=== PATIENT | female | born 1995 | race African-American/Black ===

== ENCOUNTER 2017-02-22 23:47 | Day surgery (SDC) | payer SELFPAY ==
--- NOTE | 2017-02-23 00:36 | PDOC ---
History of Present Illness - General Chief Complaint: ,Possible Stated Complaint: MISCARRIAGE Time Seen by Provider: 02/23/17 00:10 History Source: Patient - History of Present Illness Initial Comments: 02/23/17 0019 21 year old female with spontaneous prior to arrival from home. Patient found out she was 3 days ago and reports that she missed 2 periods. She does not know how far long she is. EMS found patient at home with full body outside the vaginal canal, fetus is attached to the umbilical cord and placenta. Small amount of tissue is noted outside the vaginal vault. Patient reports some cramping and rectal and pelvic pressure. Patient denies fever, headache, chest pain,urinary complaints at this time Past History - Past Medical History Allergies/Adverse Reactions: Allergies Allergy/AdvReac Type Severity Reaction Status Date / Time No Known Allergies Allergy Verified 02/23/17 00:13 Home Medications: Ambulatory Orders Vit/Iron Fumarate/FA [ Tablet] 1 tablet PO DAILY 08/09/15 Ibuprofen [Motrin -] 600 mg PO QID #28 tablet 09/29/15 Asthma: No Cancer: No Cardiac Disorders: No Diabetes: No HTN: No Seizures: No Thyroid Disease: No - Psycho/Social/Smoking Cessation Hx Suicidal Ideation: No Smoking History: Unknown if ever smoked Have you smoked in the past 12 months: No Information on smoking cessation initiated: No Hx Alcohol Use: No Drug/Substance Use Hx: No Hx Substance Use Treatment: No Review of Systems - Review of Systems Able to Perform ROS?: Yes Is the patient limited Hebrew proficient: No : Yes: Other (vaginal bleeding) *Physical Exam - Vital Signs Last Vital Signs Temp Pulse Resp BP Pulse Ox 97.9 F 89 14 125/68 98 02/23/17 00:13 02/23/17 00:13 02/23/17 00:13 02/23/17 00:13 02/23/17 00:13 - Physical Exam General Appearance: Yes: Appropriately Dressed Cardiovascular: positive: Regular Rhythm, Regular Rate Female Pelvic Exam: positive: other (fetus attached to umbilical cord, large tissue expelling from vaginal vault. ) Gastrointestinal/Abdominal: positive: Normal Bowel Sounds, Soft Extremity: positive: Normal Capillary Refill, Normal Inspection, Normal Range of Motion Integumentary: positive: Normal Color, Dry, Warm Neurologic: positive: Fully Oriented, Alert ED Treatment Course - LABORATORY CBC & Chemistry Diagram: 02/22/17 00:56 02/22/17 00:56 Progress Note - Progress Note Progress Note: A: Spontaneous P: cbc cmp IVF NPO x 8 hours. recruiting operations consultant consult Medical Decision Making - Medical Decision Making 02/23/17 00:35 patient with abdominal cramping, umbilical cord and placenta in vaginal vault. small tissue retrieved. fetus attached to the umbilical cord. 02/23/17 0230 Patient reports eating popcorn 2 hours prior. case discussed with Dr. Yee. Patient need to be NPO for 8 hours prior to OR. *DC/Admit/Observation/Transfer Diagnosis at time of Disposition: Incomplete spontaneous
[2017-02-23 01:09] LABS: URINE APPEARANCE CLEAR; URINE BILIRUBIN NEGATIVE (NEGATIVE); URINE COLOR YELLOW; URINE GLUCOSE (UA) NEGATIVE (NEGATIVE); URINE KETONE NEGATIVE (NEGATIVE); URINE NITRITE NEGATIVE (NEGATIVE); URINE UROBILINOGEN NEGATIVE E.U./dl (0.2-1.0)
[2017-02-23 01:10] LABS: BASOPHIL 0.2 % (0-2.0); EOSINOPHIL 2.1 % (0-4.5); MCHC 33.3 g/dl (32.0-36.0); MEAN PLT VOLUME 8.9 fl (7.5-11.1); NEUTROPHILS 76.3 % (42.8-82.8); PLATELET COUNT 177 K/MM3 (134-434); RDW 14.4 % (11.6-15.6); WHITE BLOOD COUNT 10.1 K/mm3 (4.0-10.0)
[2017-02-23 01:12] LABS: URINE BLOOD 3+ (NEGATIVE); URINE LEUK ESTERASE TRACE (NEGATIVE); URINE PROTEIN 1+ (NEGATIVE)
[2017-02-23 01:18] LABS: URINE BACTERIA RARE /hpf (NONE SEEN); URINE HYALINE CAST 3 /lpf; URINE MUCUS FEW; URINE RBC 294 /hpf (0-3); URINE WBC 36 /hpf (3-5)
[2017-02-23 01:42] LABS: CREATININE 0.6 mg/dL (0.55-1.02); GLUCOSE,RANDOM 77 mg/dL (74-106)
[2017-02-23 01:43] LABS: ALBUMIN 3.1 g/dl (3.4-5.0); ANION GAP 10 (8-16); BILIRUBIN,TOTAL 0.3 mg/dL (0.2-1.0); CALCIUM 8.8 mg/dL (8.5-10.1); CO2 25 mmol/L (21-32); SGOT/AST 10 U/L (15-37); SGPT/ALT 11 U/L (12-78); TOT PROT 6.6 g/dl (6.4-8.2)
[2017-02-23 01:58] LABS: ALK PHOS 63 U/L (45-117)
[2017-02-23] MEDS ORDERED: SODIUM CHLORIDE 1,000 ML IV STA (02:49)
[2017-02-23] MEDS ORDERED: SODIUM CHLORIDE 1,000 ML IV SCH (06:00)
--- NOTE | 2017-02-23 08:22 | PDOC ---
*Physical Exam - Vital Signs Last Vital Signs Temp Pulse Resp BP Pulse Ox 97.9 F 89 14 125/68 98 02/23/17 00:13 02/23/17 00:13 02/23/17 00:13 02/23/17 00:13 02/23/17 00:13 - Physical Exam General Appearance: Yes: Appropriately Dressed. No: Apparent Distress HEENT: positive: Normal Voice Neck: positive: Supple Respiratory/Chest: negative: Respiratory Distress Integumentary: positive: Dry, Warm Neurologic: positive: Fully Oriented, Alert, Normal Mood/Affect ED Treatment Course - LABORATORY CBC & Chemistry Diagram: 02/22/17 00:56 02/22/17 00:56 - ADDITIONAL ORDERS Additional order review: Laboratory Results 02/23/17 02/22/17 02/22/17 00:56 00:56 00:56 Sodium 140 Potassium 3.6 Chloride 105 Carbon Dioxide 25 Anion Gap 10 BUN 9 D Creatinine 0.6 Creat Clearance w eGFR > 60 Random Glucose 77 Calcium 8.8 Total Bilirubin 0.3 AST 10 L ALT 11 L Alkaline Phosphatase 63 Total Protein 6.6 Albumin 3.1 L Beta HCG, Quant 84174.5 Urine Color Yellow Urine Appearance Clear Urine pH 5.0 Urine Protein 1+ H Urine Glucose (UA) Negative Urine Ketones Negative Urine Blood 3+ H Urine Nitrite Negative Urine Bilirubin Negative Urine Urobilinogen Negative Ur Leukocyte Esterase Trace H Urine RBC 294 Urine WBC 36 Ur Epithelial Cells Rare Urine Bacteria Rare Hyaline Casts 3 Urine Mucus Few Blood Type O POSITIVE Antibody Screen Negative 02/22/17 00:56 RBC 3.42 L MCV 87.0 MCHC 33.3 RDW 14.4 MPV 8.9 Neutrophils % 76.3 Lymphocytes % 14.5 D Monocytes % 6.9 Eosinophils % 2.1 D Basophils % 0.2 - Medications Given in the ED: ED Medications Discontinued Medications Generic Name Dose Route Start Last Admin Trade Name Freq PRN Reason Stop Dose Admin Sodium Chloride 1,000 mls @ 1,000 mls/hr 02/23/17 02:49 02/23/17 02:57 Normal Saline - IV 02/23/17 03:48 1,000 mls/hr ASDIR STA Administration Medical Decision Making - Medical Decision Making 02/23/17 07:40 Pt signed out to wi at 7am 21 yo F w/ incomplete spon AB. As per prior team, Pt stable w/ an ~20 week fetus attached to placenta. MILK DELIVERY DRIVER to be c/s for OR today 02/23/17 08:37 02/23/17 08:37 Case d/w Dr Guerrero, requests pitocin and ancef now 02/23/17 10:06 MILK DELIVERY DRIVER at bedside, pt enroute to the OR. Admitted *DC/Admit/Observation/Transfer Diagnosis at time of Disposition: Incomplete miscarriage - Discharge Dispostion Condition at time of disposition: Fair Admit: Yes
[2017-02-23] MEDS ORDERED: CEFAZOLIN 2 GM in DEXTROSE 5%-WATER - 50 ML IVPB ONE (08:37)
[2017-02-23] MEDS ORDERED: OXYTOCIN 10 UNITS/ML VIAL ONE ×2 (08:41→13:47)
[2017-02-23] MEDS ORDERED: OXYTOCIN 20 UNITS in 0.9% NS 1,000 ML IV SCH ×2 (08:45→12:30)
--- NOTE | 2017-02-23 10:05 | PDOC ---
*Physical Exam - Vital Signs Last Vital Signs Temp Pulse Resp BP Pulse Ox 97.7 F 80 14 103/64 100 02/23/17 07:28 02/23/17 09:25 02/23/17 09:25 02/23/17 09:25 02/23/17 09:25 ED Treatment Course - LABORATORY CBC & Chemistry Diagram: 02/22/17 00:56 02/22/17 00:56 - ADDITIONAL ORDERS Additional order review: Laboratory Results 02/23/17 02/22/17 02/22/17 00:56 00:56 00:56 Sodium 140 Potassium 3.6 Chloride 105 Carbon Dioxide 25 Anion Gap 10 BUN 9 D Creatinine 0.6 Creat Clearance w eGFR > 60 Random Glucose 77 Calcium 8.8 Total Bilirubin 0.3 AST 10 L ALT 11 L Alkaline Phosphatase 63 Total Protein 6.6 Albumin 3.1 L Beta HCG, Quant 56676.5 Urine Color Yellow Urine Appearance Clear Urine pH 5.0 Urine Protein 1+ H Urine Glucose (UA) Negative Urine Ketones Negative Urine Blood 3+ H Urine Nitrite Negative Urine Bilirubin Negative Urine Urobilinogen Negative Ur Leukocyte Esterase Trace H Urine RBC 294 Urine WBC 36 Ur Epithelial Cells Rare Urine Bacteria Rare Hyaline Casts 3 Urine Mucus Few Blood Type O POSITIVE Antibody Screen Negative 02/22/17 00:56 RBC 3.42 L MCV 87.0 MCHC 33.3 RDW 14.4 MPV 8.9 Neutrophils % 76.3 Lymphocytes % 14.5 D Monocytes % 6.9 Eosinophils % 2.1 D Basophils % 0.2 - Medications Given in the ED: ED Medications Discontinued Medications Generic Name Dose Route Start Last Admin Trade Name Freq PRN Reason Stop Dose Admin Sodium Chloride 1,000 mls @ 1,000 mls/hr 02/23/17 02:49 02/23/17 02:57 Normal Saline - IV 02/23/17 03:48 1,000 mls/hr ASDIR STA Administration Cefazolin Sodium 2 gm/ 50 mls @ 100 mls/hr 02/23/17 08:37 02/23/17 08:59 Dextrose IVPB 02/23/17 09:06 100 mls/hr ONCE ONE Administration *DC/Admit/Observation/Transfer Diagnosis at time of Disposition: Incomplete miscarriage - Discharge Dispostion Condition at time of disposition: Fair Admit: Yes
--- NOTE | 2017-02-23 10:13 | HP ---
Past Medical History - Primary Care Physician PCP:: Maren Guerrero - Admission Chief Complaint: 21 yrs old came to ER at 10.30 pm on 02/22/17, c/o passing fetus at home at 10.00 pm History of Present Illness: pt states she does not know when was her LMP. she denies h/o knowledge of . but she admits , she felt something move inside for past few days . she has been having severe cramps for past 2 days she passed fetus at 10.00 pm along with fluid & clots at 10.00pm 02/22/17 . 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 No: Addictions, Anxiety, Bipolar - Past Surgical History Past Surgical History: Yes: None Hx Myomectomy: No Hx Transabdominal Cerclage: No - Smoking History Smoking history: Current every day smoker Have you smoked in the past 12 months: Yes Aproximately how many cigarettes per day: 2 - Alcohol/Substance Use Hx Alcohol Use: No History of Substance Use: reports: Marijuana Date of Last Use: 02/16/17 (approx one wk ago. 2 joints ) - Social History History of Recent Travel: No Other Social History: pt states her father 1 month ago. Home Medications - Allergies Allergies/Adverse Reactions: Allergies Allergy/AdvReac Type Severity Reaction Status Date / Time No Known Allergies Allergy Verified 02/23/17 00:13 - Home Medications Home Medications: Ambulatory Orders NK [No Known Home Medication] 02/23/17 Physical Exam-RECRUITMENT MANAGER Vital Signs: Vital Signs Temperature 97.7 F 02/23/17 07:28 Pulse Rate 80 06/29/17 09:25 Respiratory Rate 14 02/23/17 09:25 Blood Pressure 103/64 02/23/17 09:25 O2 Sat by Pulse Oximetry (%) 100 02/23/17 09:25 Constitutional: Yes: Mild Distress, Thin Eyes: Yes: WNL HENT: Yes: WNL, Normocephalic Neck: Yes: WNL Cardiovascular: Yes: WNL, Regular Rate and Rhythm Respiratory: Yes: WNL Gastrointestinal: Yes: WNL, Normal Bowel Sounds ...Rectal Exam: Yes: Deferred Renal/: No: CVA Tenderness - Left, CVA Tenderness - Right Pelvis: Yes: Mass (suprapubic mass 16 weeks size) External Genitalia: Yes: Normal Vaginal Exam: Yes: Bleeding, Other (Male fetus hanging out of vagina,approx 18- 20 weeks gestation complete anatomy noted) Cervix: Yes: Bleeding, Other (os open placenta not felt at os) Uterus: Yes: Enlarged (16 weeks size with placenta in utero), Tender Adnexa: Normal: Bilateral, Not Palpable: Bilateral Breast(s): Yes: WNL Musculoskeletal: Yes: WNL Extremities: Yes: WNL Edema: No Integumentary: Yes: Tattoos Neurological: Yes: WNL ...Motor Strength: WNL Psychiatric: Yes: WNL, Alert, Oriented Labs: CBC, BMP 02/22/17 00:56 02/22/17 00:56 Laboratory Tests 02/22/17 00:56 Blood Type O POSITIVE Antibody Screen Negative Problem List - Problem (1) Incomplete Code(s): O03.4 - INCOMPLETE SPONTANEOUS WITHOUT COMPLICATION (2) 14-20 weeks gestation of Code(s): HVU8035 - (3) Anemia affecting in second trimester Code(s): O99.012 - ANEMIA COMPLICATING , SECOND TRIMESTER (4) Substance abuse affecting in second trimester, antepartum Code(s): O99.322 - DRUG USE COMPLICATING , SECOND TRIMESTER F19.10 - OTHER PSYCHOACTIVE SUBSTANCE ABUSE, UNCOMPLICATED Assessment/Plan 21 yrs sp incomplete , with fetus expelled out >12 hrs , placenta retained in utero , anemia, h/o substance abuse, no care pt is given IV pitocin 20 uints in 1000 ml 150 ml/hr IV Ancef 2 gm in ER. needs MRP , Suction D&C for placenta removal
[2017-02-23 10:25] LABS: INR 1.04 (0.82-1.09); PROTHROMBIN TIME (PATIENT) 11.5 SEC (9.98-11.88)
[2017-02-23] MEDS ORDERED: MIDAZOLAM HCL 2 MG/2 ML SINGLE DOSE VIAL ONE (11:37)
[2017-02-23] MEDS ORDERED: PROPOFOL 20 ML ONE (11:38)
[2017-02-23] MEDS ORDERED: SUCCINYLCHOLINE CHLORIDE 200 MG/10 ML VIAL ONE (11:38)
[2017-02-23] MEDS ORDERED: SODIUM CHLORIDE 0.9% P/F 10 ML VIAL IJ ONE (11:54)
[2017-02-23] MEDS ORDERED: DEXAMETHASONE SOD PHOSPHATE 4 MG/1 ML VIAL ONE (11:59)
[2017-02-23] MEDS ORDERED: METHYLERGONOVINE MALEATE 0.2 MG/1 ML AMP IM PRN (12:22)
[2017-02-23] MEDS ORDERED: IBUPROFEN 600 MG TABLET (FP) PO PRN (12:22)
[2017-02-23] MEDS ORDERED: ACETAMINOPHEN 325 MG TABLET (FP) PO PRN (12:22)
--- NOTE | 2017-02-23 12:22 | OP ---
Operative Note - Note: Operative Date: 02/23/17 Pre-Operative Diagnosis: 18-20 weeks gestation ,Spontaneous incomplete . retained placenta Operation: MRP, curettage of uterine cavity Findings: Male fetus 250 gm wt large blood clots passed MRP done curettage done to insure completion of abortive process Preop 2 gm iv Ancef was given in ER . . Surgeon: Maren Guerrero Anesthesiologist/COTTON TIER: Rossy Blanco Anesthesia: General Specimens Removed: fetus. placenta & curettings Estimated Blood Loss (mls): 200 Drains, Volume Out (mls): 50 (urine catheter sp sent for drug tox ) Fluid Volume Replaced (mls): 500 (Im Methergine 0.2mg in Or & 20 IU Pitocin ) Operative Report Dictated: Yes
[2017-02-23] MEDS ORDERED: ONDANSETRON 4 MG/2 ML VIAL IVPUSH PRN (12:31)
[2017-02-23] MEDS ORDERED: LACTATED RINGERS SOLUTION 1,000 ML IV SCH (12:45)
[2017-02-23 13:03] LABS: URINE MARIJUANA THC POSITIVE ng/ml (CUTOFF=50)
--- NOTE | 2017-02-23 13:58 | OP ---
DATE OF OPERATION: 02/23/2017 PREOPERATIVE DIAGNOSIS: An 18-20 weeks' , spontaneous incomplete , retained placenta. POSTOPERATIVE DIAGNOSIS: An 18-20 weeks' , spontaneous incomplete , retained placenta. OPERATION: Manual removal of placenta and curettage of uterine cavity. ANESTHESIA: General. SURGEON: Bridgett Guerrero MD ANESTHESIOLOGIST: Rossy Blanco DO FINDINGS: This is a 21-year-old 2, para 1-0-0-1 with LMP unknown, estimated gestational age 18-20 weeks by examination of the fetus. It appeared that the patient expelled the fetus at home at 10 p.m. on February 22 and the placenta has not passed. She was passing blood clots in the ER. The fetus' weight was 250 g. DESCRIPTION OF PROCEDURE: The patient was taken to the operating room table and general anesthesia was given. She was placed in the lithotomy position. The pubis, perineum and vagina were painted with Betadine and draped in the usual manner. Pelvic examination was done. The os was open and blood clots were removed. The placenta was felt at the os. The uterus was about 16 weeks' size. The placenta was manually and removed from the uterus. Some adherent tissue was still noted in the lower segment. Then, a weighted speculum was put in. The anterior lip of the cervix was held with a ring forceps. Curettage was done and the blood clots were removed from the vagina. Abortive procedure was confirmed. The uterine cavity was cleaned with a sponge and all instruments were removed. The anesthesiologist was requested to continue IV Pitocin and give IM Methergine 0.2 mg intraoperatively. Bladder was catheterized n emptied ,100 ml urine was removed, sample was sent for drug tox. The patient tolerated the procedure well and was transferred to the recovery room in stable condition. ESTIMATED BLOOD LOSS: 200 mL in the operating room. She had received 2 g of IV Ancef in the emergency room preoperatively. Her blood type is O positive. BRIDGETT GUERRERO M.D. SUSAN/[id number] MTDD
[2017-02-23 15:51] VITALS: BP 111/66; PULSE 70; TEMP 97.8; BMI 17.9
[2017-02-23 16:42] LABS: BASOPHIL 0.2 % (0-2.0); EOSINOPHIL 0.3 % (0-4.5); MCH 28.5 pg (25.7-33.7); MCHC 32.8 g/dl (32.0-36.0); MEAN PLT VOLUME 9.3 fl (7.5-11.1); NEUTROPHILS 91.2 % (42.8-82.8); PLATELET COUNT 157 K/MM3 (134-434); RDW 14.3 % (11.6-15.6); WHITE BLOOD COUNT 9.7 K/mm3 (4.0-10.0)
[2017-02-23] MEDS ORDERED: FERROUS SO4 325 MG TABLET (FP) PO SCH (17:30)
[2017-02-24] MEDS ORDERED: PRENATAL VITAMINS W/ FOLIC ACID TABLET (FP) PO SCH (10:00)
--- NOTE | 2017-02-24 13:36 | PATH ---
Surgical Pathology Report Patient Name: ESTUARDO RIOS [facility]. Rec. #: [id number] /Age/Gender: 1995 (Age: 21) / F Account: [id number] Location: AMBULATORY SURG Taken: 02/22/2017 Received: 02/23/2017 Reported: 02/24/2017 Physicians: Maren Guerrero M.D. Specimen(s) Received A: FETUS, WITH DISSECTION B: PLACENTA Clinical History 21-year-old Passed fetus at home 10:00 PM 02/22/17, placenta retained Male fetus 250 g Final Diagnosis A. FETUS, EVACUATION: IMMATURE FETUS, 112 GRAMS, WITH NO INTERNAL OR EXTERNAL CONGENITAL ABNORMALITIES IDENTIFIED. B. PLACENTA, REMOVAL: DISRUPTED IMMATURE PLACENTA, 110 GRAMS, WITH ACUTE CHORIOAMNIONITIS AND 3 VESSEL UMBILICAL CORD. Electronically Signed Jose Hernández M.D. Gross Description A. Received in formalin, labeled "fetus," is a 112 g intact fetus measuring 12 cm from crown to rump and 16.5 cm from crown to heel. Each foot measures 2.1 cm from heel to toe. There is a 4 cm in length x 0.4 cm in diameter umbilical cord attached at the umbilicus. No true knots or sugars are identified. Cut surface of the umbilical cord reveals 3 vessels. The anus and nares are patent. The eyelids are fused shut. The upper and lower extremities are normal in well proportion, without any bony defects. There are no axial defects and the lumbosacral spine is intact. The heart is normally positioned and no cardiac or lung abnormalities are noted. The abdominal organs also occupied their normal anatomic position. The kidneys and adrenals are well formed. The sex cannot be determined. The brain is larsen and gelatinous. Electronic Parts Salesperson sections are submitted in 4 cassettes as follows: 1-umbilical cord, heart, lungs, thymus; 2-liver, stomach, spleen, intestines; 3-kidneys, adrenals and possible ovaries or testes; 4-brain. B. Received in formalin labeled "placenta," is a 110 g aggregate of multiple portions of a markedly torn and disrupted placenta, admixed with blood clot. The placenta measures approximately 10.0 x 9.0 x 2.3 cm. The attached membranes are larsen, translucent with focal opacities and appear to insert marginally. The attached portion of umbilical cord measures 18 cm in length and averages 4 cm in diameter. The cord inserts eccentrically, 2 cm to the nearest margin. No true knots or strictures are identified. Cut surface of the umbilical cord reveals 3 vessels. The surface is kenney blue with minimal fibrin deposition and appropriate caliber vessels. The maternal surface is pink-larsen, markedly fragmented and disrupted with focal attached blood clot. Sectioning reveals pale larsen-pink parenchyma. No discrete lesions are identified. Electronic Parts Salesperson sections are submitted in 4 cassettes as follows: 1-membrane rolls and umbilical cord; 2-section from area of attached blood clot; 6-7-zruzobnbpm full thickness sections of placenta. 02/23/[address] [facility]02/23/2017
[2017-02-24] MEDS ORDERED: SENNOSIDES/DOCUSATE COMBO (SENNA PLUS) TABLET (UD) PO PRN (22:00)
== END 2017-02-23 19:00 | disposition home or self-care (01) ==
LOC: JER 23:47 → JASUSAT 02-23 10:05 → J3W 02-23 14:45 → JASUSAT 02-23 19:00
PROVIDERS: ATTEND Obstetrics & Gynecology
PROC: 10D17ZZ Extraction of Products of Conception, Retained, Via Natural or Artificial Opening (ICD-10-PCS; 2017-02-23)
PROC: 10D17ZZ Extraction of Products of Conception, Retained, Via Natural or Artificial Opening (ICD-10-PCS; principal; 2017-02-23 10:00)
DX: O03.4 Incomplete spontaneous abortion without complication (principal); Z3A.18 18 weeks gestation of pregnancy
CPT/HCPCS: 36415; 80053; 80307; 81003; 81015; 84702; 85025; 85610; 86850; 86900; 86901; 87086; 88307-TC; 88309-TC; 94760; 99283-25

== ENCOUNTER 2017-11-16 00:54 | Emergency (ER) | payer OTHER ==
--- NOTE | 2017-11-16 01:11 | PDOC ---
*Physical Exam - Physical Exam Comments: 11/16/17 01:10 The patient was examined by DENYS Serrano under my direct supervision. I personally evaluated the patient. I concur with the above findings and the plan of care. ED Treatment Course - LABORATORY CBC & Chemistry Diagram: 11/16/17 01:55 *DC/Admit/Observation/Transfer Diagnosis at time of Disposition: Pelvic pain - Discharge Dispostion Disposition: HOME - Referrals - Patient Instructions Printed Discharge Instructions: DI for Pelvic Pain Additional Instructions: follow up with gynecology as soon as possible you may take tylenol every 6 hours for pain. return to the ER if symptoms worsen - Post Discharge Activity
--- NOTE | 2017-11-16 01:21 | PDOC ---
History of Present Illness - General Chief Complaint: Pain, Acute Stated Complaint: ABD PAIN Time Seen by Provider: 11/16/17 01:09 History Source: Patient - History of Present Illness Initial Comments: 11/16/17 03:09 22 year old female c/o right sided pelvic pain radiating to right flank. as per patient patient was seen in the clinic earlier with + urine and advised to be seen in the ED> 11/16/17 03:16 Past History - Past Medical History Allergies/Adverse Reactions: Allergies Allergy/AdvReac Type Severity Reaction Status Date / Time No Known Allergies Allergy Verified 02/23/17 00:13 Home Medications: Ambulatory Orders NK [No Known Home Medication] 11/16/17 Anemia: Yes Asthma: No Cancer: No Cardiac Disorders: No CVA: No COPD: No CHF: No Dementia: No Diabetes: No GI Disorders: No Disorders: No HTN: No Hypercholesterolemia: No Liver Disease: No Seizures: No Thyroid Disease: No - Surgical History Abdominal Surgery: No Appendectomy: No Cardiac Surgery: No Cholecystectomy: No Lung Surgery: No Neurologic Surgery: No Orthopedic Surgery: No - Reproductive History (#): 2 Para: 1 Cervical CA: No Dysfunctional Uterine Bleeding: No Ectopic : No Endometrial CA: No Polycystic Ovaries: No Therapeutic (s) & number: No Tubal Ligation: No - Suicide/Smoking/Psychosocial Hx Smoking History: Unknown if ever smoked Have you smoked in the past 12 months: No Number of Cigarettes Smoked Daily: 2 'Breaking Loose' booklet given: 02/23/17 Hx Alcohol Use: No Drug/Substance Use Hx: No Substance Use Type: Marijuana Hx Substance Use Treatment: No Review of Systems - Review of Systems Able to Perform ROS?: Yes Is the patient limited Malay proficient: No HEENTM: Yes: Nose Congestion ABD/GI: Yes: Other (pelvic pain) : No: Symptoms Reported, See HPI, Burning, Dysuria, Discharge, Frequency, Flank Pain, Hematuria, Incontinence, Pain, Urgency, Testicular Mass, Testicular Swelling, Lesions, Testicular Pain, Other Musculoskeletal: No: Symptoms Reported, See HPI, Back Pain, Gout, Joint Pain, Joint Swelling, Muscle Pain, Muscle Weakness, Neck Pain, Joint Stiffness, Other *Physical Exam - Vital Signs Last Vital Signs Temp Pulse Resp BP Pulse Ox 98.1 F 97 H 18 134/96 100 11/16/17 01:11 11/16/17 01:11 11/16/17 01:11 11/16/17 01:11 11/16/17 01:11 - Physical Exam General Appearance: Yes: Appropriately Dressed HEENT: positive: Nasal Congestion Respiratory/Chest: positive: Lungs Clear, Normal Breath Sounds. negative: Chest Tender Female Pelvic Exam: positive: normal external exam, cervical os closed, adnexal tenderness (right ) Gastrointestinal/Abdominal: positive: Normal Bowel Sounds, Soft Musculoskeletal: positive: Normal Inspection Extremity: positive: Normal Capillary Refill, Normal Inspection Integumentary: positive: Normal Color, Dry, Warm Neurologic: positive: Fully Oriented, Alert, Normal Mood/Affect ED Treatment Course - LABORATORY CBC & Chemistry Diagram: 11/16/17 01:55 Progress Note - Progress Note Progress Note: A: right pelvic pain P: cbc beta hcg tyep and screen TVUS; negative *DC/Admit/Observation/Transfer Diagnosis at time of Disposition: Pelvic pain - Discharge Dispostion Disposition: HOME - Referrals - Patient Instructions Printed Discharge Instructions: DI for Pelvic Pain Additional Instructions: follow up with gynecology as soon as possible you may take tylenol every 6 hours for pain. return to the ER if symptoms worsen - Post Discharge Activity
[2017-11-16 01:35] VITALS: BP 134/96; PULSE 97; TEMP 98.1
[2017-11-16 01:35] LABS: URINE APPEARANCE CLEAR; URINE BILIRUBIN NEGATIVE (NEGATIVE); URINE BLOOD NEGATIVE (NEGATIVE); URINE COLOR YELLOW; URINE GLUCOSE (UA) 1+ (NEGATIVE); URINE KETONE TRACE (NEGATIVE); URINE LEUK ESTERASE NEGATIVE (NEGATIVE); URINE NITRITE NEGATIVE (NEGATIVE); URINE PROTEIN NEGATIVE (NEGATIVE)
[2017-11-16 02:02] LABS: BASO % 0.6 % (0-2.0); HEMATOCRIT 32.7 % (32.4-45.2); HEMOGLOBIN 10.8 GM/dL (10.7-15.3); LYMPH % 29.4 % (8-40); MCH 26.6 pg (25.7-33.7); MEAN CELL VOLUME 80.7 fl (80-96); MEAN PLT VOLUME 9.1 fl (7.5-11.1); MONO % 15.5 % (3.8-10.2); NEUT % 51.5 % (42.8-82.8); PLATELET COUNT 174 K/MM3 (134-434); RBC 4.05 M/mm3 (3.60-5.2); RDW 17.5 % (11.6-15.6); WHITE BLOOD COUNT 4.1 K/mm3 (4.0-10.0)
[2017-11-16] MEDS ORDERED: ACETAMINOPHEN 325 MG TABLET (FP) PO ONE (03:14)
[2017-11-16] MEDS ORDERED: ACETAMINOPHEN 325 MG TABLET (FP) ONE (03:16)
== END 2017-11-16 03:36 | disposition home or self-care (01) ==
LOC: JER 00:54
DX: R10.2 Pelvic and perineal pain (principal)
CPT/HCPCS: 36415; 76817-TC; 81003; 84702; 85025; 86850; 86900; 86901; 99282-25

== ENCOUNTER 2018-09-24 09:53 | Emergency (ER) | payer SELFPAY ==
[2018-09-24 10:16] VITALS: BP 101/65; PULSE 86; TEMP 98.1; BMI 16.5
--- NOTE | 2018-09-24 11:10 | PDOC ---
History of Present Illness - General Chief Complaint: Pain Stated Complaint: SICK Time Seen by Provider: 09/24/18 10:20 History Source: Patient Exam Limitations: No Limitations - History of Present Illness Initial Comments: 09/24/18 11:05 22-year-old female presents the emergency room with complaints of sore throat for the past 2 weeks along with swollen gums to the lower teeth without dental pain or gum bleeding. Patient has no other complaints at this time. Timing/Duration: intermittent Severity: mild Associated Symptoms: reports: denies symptoms Past History - Travel Traveled outside of the country in the last 30 days: No Close contact w/someone who was outside of country & ill: No - Past Medical History Allergies/Adverse Reactions: Allergies Allergy/AdvReac Type Severity Reaction Status Date / Time No Known Allergies Allergy Verified 09/24/18 10:10 Home Medications: Ambulatory Orders NK [No Known Home Medication] 11/16/17 Anemia: Yes Asthma: No Cancer: No Cardiac Disorders: No CVA: No COPD: No CHF: No Dementia: No Diabetes: No GI Disorders: No Disorders: No HTN: No Hypercholesterolemia: No Liver Disease: No Seizures: No Thyroid Disease: No - Surgical History Abdominal Surgery: No Appendectomy: No Cardiac Surgery: No Cholecystectomy: No Lung Surgery: No Neurologic Surgery: No Orthopedic Surgery: No - Reproductive History (#): 2 Para: 1 Cervical CA: No Dysfunctional Uterine Bleeding: No Ectopic : No Endometrial CA: No Polycystic Ovaries: No Therapeutic (s) & number: No Tubal Ligation: No - Suicide/Smoking/Psychosocial Hx Smoking History: Unknown if ever smoked Have you smoked in the past 12 months: No Number of Cigarettes Smoked Daily: 2 'Breaking Loose' booklet given: 02/23/17 Hx Alcohol Use: No Drug/Substance Use Hx: No Substance Use Type: Marijuana Hx Substance Use Treatment: No Patient Lives Alone: No Lives with/in: parents Review of Systems - Review of Systems Able to Perform ROS?: Yes Constitutional: No: Symptoms Reported HEENTM: Yes: Symptoms Reported, Throat Pain, Other ([place]uk[place]z gums) Respiratory: No: Symptoms reported Cardiac (ROS): No: Symptoms Reported ABD/GI: No: Symptoms Reported : No: Symptoms Reported Musculoskeletal: No: Symptoms Reported Integumentary: No: Symptoms Reported Neurological: No: Symptoms reported Endocrine: No: Symptoms Reported *Physical Exam - Vital Signs Last Vital Signs Temp Pulse Resp BP Pulse Ox 98.1 F 86 18 101/65 100 09/24/18 10:15 09/24/18 10:15 09/24/18 10:15 09/24/18 10:15 09/24/18 10:15 - Physical Exam General Appearance: Yes: Nourished, Appropriately Dressed. No: Apparent Distress HEENT: positive: EOMI, POLO, TMs Normal, Pharynx Normal, Other (noted mild edema to the lower front gingiva without active bleeding). negative: Pale Conjunctivae Neck: positive: Supple Respiratory/Chest: positive: Lungs Clear, Normal Breath Sounds. negative: Respiratory Distress, Accessory Muscle Use Gastrointestinal/Abdominal: positive: Soft. negative: Tenderness Integumentary: positive: Normal Color, Warm, Moist Neurologic: positive: Motor Strength 5/5 (ambulatory) Moderate Sedation - Procedure Monitoring Vital Signs: Procedure Monitoring Vital Signs Temperature 98.1 F 09/24/18 10:15 Pulse Rate 86 09/24/18 10:15 Respiratory Rate 18 09/24/18 10:15 Blood Pressure 101/65 09/24/18 10:15 O2 Sat by Pulse Oximetry (%) 100 09/24/18 10:15 Medical Decision Making - Medical Decision Making 09/24/18 11:12 CC: sore throat and swollen gums Exam: mild gingivitis, no erythema to post pharynx Plan: rapid strep 09/24/18 11:30 Laboratory Tests 09/24/18 10:30 Group A Strep Rapid Negative discharge home *DC/Admit/Observation/Transfer Diagnosis at time of Disposition: Sore throat - Discharge Dispostion Disposition: HOME Condition at time of disposition: Good - Referrals - Patient Instructions Printed Discharge Instructions: DI for Viral Pharyngitis Additional Instructions: Please eat soft non abrasive foods and may take tylenol or motrin for discomfort. [place] in circular motion, floss, and f/u with your dentist - Post Discharge Activity
== END 2018-09-24 11:49 | disposition home or self-care (01) ==
LOC: JER 09:53
DX: J02.9 Acute pharyngitis, unspecified (principal); B97.89 Other viral agents as the cause of diseases classified elsewhere
CPT/HCPCS: 87070; 87880; 99281-25